=== PATIENT | male | born 1975 | race Caucasian/White ===

== ENCOUNTER 2019-02-18 07:15 | Inpatient (IN) | payer OTHER ==
[~2019-02-18] VITALS: Ht 177.8 cm; Wt 97.3 kg
--- NOTE | 2019-02-18 07:49 | NUR ---
PATIENT ARRIVES TO ER WITH HARM TO SELF IN A SUICIDE ATTEMPT THAT HAPPENED PRIOR TO ARRIVAL. hE HAS DEEP LACERATION SELF INFLICTED THAT WILL NEEED STITCHES TO RIGHT INNER WRIST SPANNING ENTIRE WIDTH OF INNER WRIST; BLEEDING CONTROLLED WITH DRESSING PLACED WHEN SHE CAME HOME FROM WORK AND NEW DRESSING I JUST PLACED. WAS WORKING [employer] WHEN SHE GOT TEXTS THAT HER WAS SENDING OUT DARK AND SI TEXTS TO ACQUAINTANCES. SHE TRIED TO CONTACT HIM BUT HE WAS NOT ANSWERING. SHE WAS RELEASED FROM WORK EARLY AT 4 AM AND WENT HOME WHERE WAS DRUNK, AND HAD CUTS TO BOTH WRISTS. THE LEFT SIDE IS SUPERFICIAL SCRAPES FROM KNIFE - MULTIPLE, THE RIGHT DEEP LARGE CUT. SHE BANDAGED AND BROUGHT HIM TO HOSPITAL. CLOTHING AND BELONGINGS REMOVED, GOWNED, RAILS UP. PATIENT AND SPOUSE DETAIL STORY THAT PATIENT HAS STRUGGLED WITH DEPRESSION FOR A FEW YEARS. THEY MOVED HERE IN LAST YEAR FROM [place]. HE APPARENTLY WAS ADDICTED TO TRAMADOL THAT HE WAS ORDERING "FROM [place]" AND TOOK SO MUCH THAT HE BEGAN HAVING SEIZURES. HE THEN SAW AN MD AND BEGAN TAKING KEPPRA FOR THE SEIZURES. HE WAS ALSO GIVEN AN ANTIDEPRESSANT THAT THEY ARE UNSURE OF NAME - THEY BELIEVE PAXIL, BUT UNSURE. STATES IT DIDN'T WORK AND HE RARELY TAKES IT. THEN HE BEGAN TO "TREAT HIS DEPRESSION" WITH ANOTHER [place] MEDICATION CALLED KRAYTUM THAT HE BEGAN ABUSING. SINCE LIVING IN [place] HIS DRINKING AND DEPRESSION WORSENING. HE STATES THAT HE IS HATES HUMANS, HE WANTS TO , AND HE INTENDS TO KILL HIMSELF. HE STATES HE HAS MULTIPLE PAST ATTEMPTS THAT INCLUDE JUMPING OFF CLIFFS AND OVERDOSING ON MEDICATIONS.
[2019-02-18] MEDS ORDERED: LORazepam 1MG TABLET PO ONE (08:00)
[2019-02-18] MEDS ORDERED: LIDOCAINE-MPF 1%, 5ML INFIL ONE (08:00)
[2019-02-18] MEDS ORDERED: LIDOCAINE-MPF 1%, 5ML ONE (08:22)
[2019-02-18 08:24] LABS: BASOPHILS # (AUTO) 0.02 x10^3/uL (0-0.1); BASOPHILS % (AUTO) 0 % (0-1); EOSINOPHILS # (AUTO) 0.04 x10^3/uL (0-0.4); EOSINOPHILS % (AUTO) 1 % (1-7); LYMPHOCYTES # (AUTO) 2.47 x10^3/uL (1-3.4); LYMPHOCYTES % (AUTO) 36 % (22-44); MD NO; MEAN CORPUSCULAR HEMOGLOBIN 32.4 pg (27.5-34.5); MEAN CORPUSCULAR HGB CONC 34.7 g/dL (33.2-36.2); MEAN CORPUSCULAR VOLUME 93.5 fL (81-97); MEAN PLATELET VOLUME 7.8 fL (7.4-10.4); MONOCYTES # (AUTO) 0.54 x10^3/uL (0.2-0.8); MONOCYTES % (AUTO) 8 % (2-9); NEUTROPHILS # (AUTO) 3.82 x10^3/uL (1.8-6.8); NEUTROPHILS % (AUTO) 55 % (42-75); PLATELET COUNT 212 x10^3/uL (130-400); RED CELL DISTRIBUTION WIDTH 13.7 % (9.4-14.8)
--- NOTE | 2019-02-18 08:28 | NUR ---
PREPPED PA FOR STICHING WOUND.
--- NOTE | 2019-02-18 08:31 | NUR ---
THERE IS NO BREATHYLZER AVAILABLE IN DEPARTMENT, HAVE LOOKED EVERYWHERE WILL GET BA CHANGED TO BLOOD.
[2019-02-18 08:35] LABS: ALANINE AMINOTRANSFERASE 31 U/L (12-78); ALBUMIN 3.7 g/dL (3.4-5.0); ANION GAP 8 mmol/L (5-15); CALCIUM 8.5 mg/dL (8.5-10.1); CHLORIDE 111 mmol/L (98-107); SALICYLATE LEVEL 1.9 mg/dL (2.8-20.0)
[2019-02-18 08:38] LABS: ACETAMINOPHEN < 2 mcg/mL (10-30); ALKALINE PHOSPHATASE 63 U/L (45-117); BILIRUBIN,TOTAL 0.2 mg/dL (0.2-1.0); TOTAL PROTEIN 7.3 g/dL (6.4-8.2)
[2019-02-18 08:44] LABS: AMPHETAMINE SCREEN, URINE Negative (Negative); BARBITURATE SCREEN, URINE Negative (Negative); BENZODIAZEPINE SCREEN, URINE Negative (Negative); CANNABINOID SCREEN, URINE Negative (Negative); COCAINE SCREEN, URINE Negative (Negative); METHADONE SCREEN, URINE Negative (Negative); OPIATE SCREEN, URINE Negative (Negative)
--- NOTE | 2019-02-18 09:15 | NUR ---
PATIENT A LEGAL HOLD ROOM SECURED W/ PSYCHIATRIC PRECAUTIONS 1:1 SITTER AT BEDSIDE UPDATED ON POC
[2019-02-18] MEDS ORDERED: BACITRACIN ZINC OINT 500U/GM, 0.9 GM ONE ×2 (09:29→13:16)
--- NOTE | 2019-02-18 09:30 | NUR ---
Right wrist laceration sutured by Provided. Dressed with bacitracin and sterile 4X4, wrapped with kerlix. cms intact post intervention
[2019-02-18] MEDS ORDERED: BACITRACIN ZINC OINT 500U/GM, 0.9 GM TP SCH (10:00)
--- NOTE | 2019-02-18 10:16 | NUR ---
TO BEDSIDE. TEARFUL IN R/T SITUATION. SHE EXPRESSED CONCERN PATIENT HAS BEEN QUITE DEPRESSED AND HAS BEEN HEAVILLY SELF MEDICATING LATELY WITH COPIOUS AMOUNTS OF TRMADOL & LIQUOR. PATIENT ADMITS TO TAKING UP TO 1000MG (ONE THOUSAND) OF TRAMADOL PER DAY OFTEN MIXED WITH ETOH. PATIENT REPORTS HX OF SEIZURE WHEN WITHDRAWING FROM TRAMADOL (WHICH HE GETS ONLINE FROM [facility] [place]). LAST TOOK TRAMADOL 2 DAYS AGO. 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
--- NOTE | 2019-02-18 10:30 | NUR ---
PATIENT A LEGAL HOLD ROOM SECURED W/ PSYCHIATRIC PRECAUTIONS 1:1 SITTER AT BEDSIDE DRESSING POST REPAIR REMAINS C/D/I PATIENT DELIVERED BREAKFASY AND PROVIDED WITH ADDITIONAL WATER PATIENT REPORTS NAUSEA/FINE TREMORS (TRAMADOL/ETOH WITHDRAWAL)-TO DISCUSS WITH PROVIDER
--- NOTE | 2019-02-18 11:40 | NUR ---
PATIENT A LEGAL HOLD ROOM SECURED W/ PSYCHIATRIC PRECAUTIONS 1:1 SITTER AT BEDSIDE
[2019-02-18] MEDS ORDERED: ONDANSETRON ODT 4 MG PO ONE (12:00)
[2019-02-18] MEDS ORDERED: LORazepam 1MG TABLET ONE (12:40)
[2019-02-18] MEDS ORDERED: ONDANSETRON ODT 4 MG ONE (12:40)
--- NOTE | 2019-02-18 12:45 | NUR ---
PATIENT A LEGAL HOLD ROOM SECURED W/ PSYCHIATRIC PRECAUTIONS 1:1 SITTER AT BEDSIDE MEDICATED PER EMAR MOVED ONTO HOSPITAL BED-RESTING SOUNDLY
[2019-02-18] MEDS ORDERED: TRAM100C2 PO (13:11)
[2019-02-18] MEDS ORDERED: SODIUM CHLORIDE 0.9% 1,000 ML IV ONE (13:28)
[2019-02-18] MEDS ORDERED: IBUPROFEN 200 MG TABLET PO ONE (13:30)
[2019-02-18] MEDS ORDERED: SODIUM CHLORIDE FLUSH 10ML SYR IVF PRN (13:30)
--- NOTE | 2019-02-18 13:41 | NUR ---
hospitalist at bedside
--- NOTE | 2019-02-18 13:59 | NUR ---
PATIENT A LEGAL HOLD ROOM SECURED W/ PSYCHIATRIC PRECAUTIONS 1:1 SITTER AT BEDSIDE
[2019-02-18] MEDS ORDERED: LORazepam 2 MG/ML, 1ML IV PRN ×5 (14:00)
[2019-02-18] MEDS ORDERED: ACETAMINOPHEN 325 MG TABLET PO PRN (14:00)
[2019-02-18] MEDS ORDERED: IBUPROFEN 600 MG TABLET PO PRN (14:00)
[2019-02-18] MEDS ORDERED: hydrALAzine 20 MG/ML, 1ML IVPush PRN (14:00)
[2019-02-18] MEDS ORDERED: LORazepam 1MG TABLET PO PRN ×3 (14:00)
[2019-02-18] MEDS ORDERED: BACLOFEN 10 MG TABLET PO PRN (14:00)
[2019-02-18] MEDS ORDERED: ONDANSETRON 2MG/ML, 2ML IVPush PRN (14:00)
[2019-02-18] MEDS ORDERED: KETOROLAC 30 MG/1 ML IV PRN (14:00)
[2019-02-18] MEDS ORDERED: KETOROLAC 30 MG/1 ML ONE (14:49)
[2019-02-18 16:00] VITALS: BP 138/74
[2019-02-18] MEDS: NS + 20MEQ KCL 1,000 ML IV SCH (16:53)
[2019-02-18] MEDS: NICOTINE 14MG/24 HR PATCH.TD24 TD SCH (17:00)
[2019-02-18] MEDS: ENOXAPARIN 40 MG/0.4 ML SQ SCH (17:00)
[2019-02-18 17:12] VITALS: BP 134/74
[2019-02-18 20:00] VITALS: BP 136/89
[2019-02-19] MEDS: NS + 20MEQ KCL 1,000 ML IV SCH ×2 (02:30→12:35)
[2019-02-19 03:04] VITALS: BP 115/74
[2019-02-19 04:06] LABS: BASOPHILS # (AUTO) 0.03 x10^3/uL (0-0.1); BASOPHILS % (AUTO) 0 % (0-1); EOSINOPHILS # (AUTO) 0.09 x10^3/uL (0-0.4); EOSINOPHILS % (AUTO) 1 % (1-7); LYMPHOCYTES # (AUTO) 2.39 x10^3/uL (1-3.4); LYMPHOCYTES % (AUTO) 34 % (22-44); MD NO; MEAN PLATELET VOLUME 8.4 fL (7.4-10.4); MONOCYTES # (AUTO) 0.75 x10^3/uL (0.2-0.8); MONOCYTES % (AUTO) 11 % (2-9); NEUTROPHILS # (AUTO) 3.88 x10^3/uL (1.8-6.8); NEUTROPHILS % (AUTO) 54 % (42-75); PLATELET COUNT 184 x10^3/uL (130-400); RED CELL DISTRIBUTION WIDTH 13.7 % (9.4-14.8)
[2019-02-19 04:19] LABS: ANION GAP 7 mmol/L (5-15); CALCIUM 8.1 mg/dL (8.5-10.1); CHLORIDE 111 mmol/L (98-107)
[2019-02-19 04:21] LABS: CREATININE 1.04 mg/dL (0.7-1.3)
[2019-02-19 06:40] VITALS: BP 115/73
[2019-02-19] MEDS: LORazepam 0.5MG TABLET PO PRN (12:35)
[2019-02-19 13:05] VITALS: BP 116/77
[2019-02-19] MEDS: NICOTINE 14MG/24 HR PATCH.TD24 TD SCH (13:26)
[2019-02-19] MEDS ORDERED: PROMETHAZINE 25 MG/ML, 1ML IM PRN (15:30)
[2019-02-19] MEDS: ENOXAPARIN 40 MG/0.4 ML SQ SCH (15:45)
[2019-02-19] MEDS: hydrOXyzine 50MG TABLET PO PRN (16:13)
[2019-02-19 19:00] VITALS: BP 124/76
[2019-02-20] MEDS: DIPHENHYDRAMINE 50 MG CAPSULE PO PRN ×2 (02:02→21:45)
[2019-02-20 02:10] VITALS: BP 124/81
[2019-02-20] MEDS: hydrOXyzine 50MG TABLET PO PRN (03:55)
[2019-02-20 07:39] VITALS: BP 147/100
[2019-02-20] MEDS: FOLIC ACID 1 MG TABLET PO SCH (07:56)
[2019-02-20] MEDS: MULTIVITAMIN 1 TABLET PO SCH (07:56)
[2019-02-20] MEDS: THIAMINE 100MG TABLET PO SCH (07:56)
[2019-02-20] MEDS ORDERED: THIAMINE 100 MG in DEXTROSE 5% 50 ML IVPB SCH (09:00)
[2019-02-20] MEDS: NICOTINE 14MG/24 HR PATCH.TD24 TD SCH (10:39)
[2019-02-20] MEDS: LORazepam 0.5MG TABLET PO PRN ×2 (12:51→22:51)
[2019-02-20 14:10] VITALS: BP 113/75
[2019-02-20] MEDS: ENOXAPARIN 40 MG/0.4 ML SQ SCH (17:00)
[2019-02-20] MEDS: LORazepam 1MG TABLET PO PRN (18:38)
[2019-02-20 19:42] VITALS: BP 133/66
[2019-02-21 00:19] VITALS: BP 124/80
[2019-02-21] MEDS: hydrOXyzine 50MG TABLET PO PRN (00:51)
[2019-02-21] MEDS: LORazepam 1MG TABLET PO PRN ×2 (02:40→06:33)
[2019-02-21] MEDS: GABAPENTIN 300 MG CAPSULE PO PRN (03:57)
[2019-02-21] MEDS: MULTIVITAMIN 1 TABLET PO SCH (10:26)
[2019-02-21] MEDS: FOLIC ACID 1 MG TABLET PO SCH (10:26)
[2019-02-21] MEDS: THIAMINE 100MG TABLET PO SCH (10:26)
[2019-02-21 14:01] VITALS: BP 126/75
[2019-02-21] MEDS: NICOTINE 14MG/24 HR PATCH.TD24 TD SCH (14:51)
[2019-02-21] MEDS: ENOXAPARIN 40 MG/0.4 ML SQ SCH (17:00)
[2019-02-21 20:24] VITALS: BP 130/79
[2019-02-22 02:00] VITALS: BP 130/79
[2019-02-22 06:42] VITALS: BP 127/85
[2019-02-22] MEDS: THIAMINE 100MG TABLET PO SCH (09:01)
[2019-02-22] MEDS: MULTIVITAMIN 1 TABLET PO SCH (09:01)
[2019-02-22] MEDS: FOLIC ACID 1 MG TABLET PO SCH (09:01)
[2019-02-22 13:25] VITALS: BP 111/78
[2019-02-22] MEDS: NICOTINE 14MG/24 HR PATCH.TD24 TD SCH (14:04)
[2019-02-22] MEDS: ENOXAPARIN 40 MG/0.4 ML SQ SCH (17:00)
[2019-02-22] MEDS: hydrOXyzine 50MG TABLET PO PRN (19:38)
[2019-02-22 19:43] VITALS: BP 116/79
[2019-02-23] MEDS: hydrOXyzine 50MG TABLET PO PRN (01:29)
[2019-02-23 01:55] VITALS: BP_SYST 115; BP_DIAS 8; BP_DIAS 80
[2019-02-23] MEDS: GABAPENTIN 300 MG CAPSULE PO PRN (05:54)
[2019-02-23] MEDS ORDERED: ONDANSETRON ODT 4 MG PO PRN (08:00)
[2019-02-23 08:15] VITALS: BP 124/76
[2019-02-23] MEDS: FOLIC ACID 1 MG TABLET PO SCH (09:29)
[2019-02-23] MEDS: MULTIVITAMIN 1 TABLET PO SCH (09:29)
[2019-02-23] MEDS: THIAMINE 100MG TABLET PO SCH (09:29)
[2019-02-23] MEDS ORDERED: ACET325T14 PO (11:17)
[2019-02-23] MEDS ORDERED: NICO-486 TD (11:17)
[2019-02-23] MEDS ORDERED: HYDR50TA13 PO (11:17)
[2019-02-23] MEDS ORDERED: CLON0.1T22 PO (11:17)
[2019-02-23] MEDS ORDERED: GABA300C10 PO (11:17)
[2019-02-23] MEDS ORDERED: IBUP-1222 PO (11:17)
[2019-02-23] MEDS: NICOTINE 14MG/24 HR PATCH.TD24 TD SCH (14:10)
== END 2019-02-23 18:00 | DRG 605 ==
LOC: ED 13:27 → 4NOR 13:28 → ED 14:14 → 4NOR 15:20 → ED 15:20 → 4NOR 15:56 → ED 15:56 → 4NOR 02-23 07:23
PROVIDERS: ADMIT Internal Medicine; ATTEND Internal Medicine
PROC: 0HQEXZZ Repair Left Lower Arm Skin, External Approach (ICD-10-PCS; principal; 2019-02-18)
PROC: 0HQDXZZ Repair Right Lower Arm Skin, External Approach (ICD-10-PCS; 2019-02-18)
DX: S61.511A Laceration without foreign body of right wrist, initial encounter (principal); F33.2 Major depressive disorder, recurrent severe without psychotic features; F11.23 Opioid dependence with withdrawal; R44.0 Auditory hallucinations; G47.00 Insomnia, unspecified; F41.9 Anxiety disorder, unspecified; F17.210 Nicotine dependence, cigarettes, uncomplicated; X78.8XXA Intentional self-harm by other sharp object, initial encounter; F10.10 Alcohol abuse, uncomplicated; Y90.9 Presence of alcohol in blood, level not specified; S61.512A Laceration without foreign body of left wrist, initial encounter; G89.29 Other chronic pain; M54.2 Cervicalgia; Z83.3 Family history of diabetes mellitus; Y93.89 Activity, other specified; Y92.89 Other specified places as the place of occurrence of the external cause; Y99.8 Other external cause status
CPT/HCPCS: 36415; 80048; 80053; 80307; 84443; 85025; 93005; 99285; G0378; J1650; J1885; J3480; Q0162

== ENCOUNTER 2019-08-05 15:50 | Emergency (ER) | payer OTHER ==
[~2019-08-05] VITALS: Ht 177.8 cm; Wt 102.8 kg
[~2019-08-05 15:50] MED LIST: ACET325T14 PO; CLON0.1T22 PO; GABA300C10 PO; HYDR50TA13 PO; IBUP-1222 PO; NICO-486 TD; TRAM100C2 PO
--- NOTE | 2019-08-05 16:28 | NUR ---
pt to ed after pcp appt today. pt states hr was 145 in the office and wouldn't go down even during rest. pt states intermittent shooting cp that is common for him described and shooting from left chest to left arm and is commonly associated with anxiety. pt states he flies often for work, but denies sob. pt connected to all monitors. tachy, htn, all other vss on ra. pt states he recently ran out of antidepressant and anxiety medication (unkown what meds). 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 awaiting edmd assessment.
[2019-08-05 17:08] LABS: BASOPHILS # (AUTO) 0.03 x10^3/uL (0-0.1); BASOPHILS % (AUTO) 0 % (0-1); EOSINOPHILS # (AUTO) 0.04 x10^3/uL (0-0.4); EOSINOPHILS % (AUTO) 0 % (1-7); LYMPHOCYTES # (AUTO) 3.03 x10^3/uL (1-3.4); LYMPHOCYTES % (AUTO) 26 % (22-44); MD NO; MEAN CORPUSCULAR HEMOGLOBIN 31.8 pg (27.5-34.5); MEAN CORPUSCULAR HGB CONC 33.6 g/dL (33.2-36.2); MEAN CORPUSCULAR VOLUME 94.7 fL (81-97); MEAN PLATELET VOLUME 7.9 fL (7.4-10.4); MONOCYTES # (AUTO) 1.03 x10^3/uL (0.2-0.8); MONOCYTES % (AUTO) 9 % (2-9); NEUTROPHILS # (AUTO) 7.63 x10^3/uL (1.8-6.8); NEUTROPHILS % (AUTO) 65 % (42-75); PLATELET COUNT 243 x10^3/uL (130-400); RED BLOOD COUNT 5.28 x10^6/uL (4.38-5.82); RED CELL DISTRIBUTION WIDTH 13.4 % (9.4-14.8)
--- NOTE | 2019-08-05 17:12 | NUR ---
PT RESTING IN ROOM WITH FAMILY AT BS. SUNIL HURLEY. PT UP SELF TO RR TO PROVIDE URINE. UTOX COLLECTED AND SENT TO LAB. AWAITING RESUTLS. NO NEEDS EXPRESSED. CALL LIGHT WITHIN REACH.
[2019-08-05 17:19] LABS: ALANINE AMINOTRANSFERASE 33 U/L (12-78); ANION GAP 8 mmol/L (5-15); CALCIUM 8.7 mg/dL (8.5-10.1); CHLORIDE 104 mmol/L (98-107)
[2019-08-05 17:24] LABS: ALKALINE PHOSPHATASE 74 U/L (45-117); BILIRUBIN,TOTAL 0.5 mg/dL (0.2-1.0); CREATININE 1.36 mg/dL (0.7-1.3); T4 (THYROXINE) 6.9 mcg/dL (4.5-12.1); TOTAL PROTEIN 7.6 g/dL (6.4-8.2); TROPONIN I < 0.015 ng/mL (0.000-0.045)
[2019-08-05 17:30] LABS: AMPHETAMINE SCREEN, URINE Negative (Negative); BARBITURATE SCREEN, URINE Negative (Negative); BENZODIAZEPINE SCREEN, URINE Negative (Negative); CANNABINOID SCREEN, URINE Negative (Negative); COCAINE SCREEN, URINE Negative (Negative); METHADONE SCREEN, URINE Negative (Negative); OPIATE SCREEN, URINE Negative (Negative)
--- NOTE | 2019-08-05 18:08 | NUR ---
TASK RN: RECEIVED BEDSIDE REPORT FROM LAURA CARLOS.
[2019-08-05] MEDS ORDERED: LORazepam 1MG TABLET ONE (18:25)
--- NOTE | 2019-08-05 18:28 | NUR ---
task rn: medication administered per order. nadn. bedside.
[2019-08-05] MEDS ORDERED: LORazepam 1MG TABLET PO ONE (18:30)
--- NOTE | 2019-08-05 18:42 | NUR ---
TASK RN: BEDSIDE REPORT TO LAURA CARLOS.
[2019-08-05 19:06] VITALS: BP 139/106
--- NOTE | 2019-08-05 19:06 | NUR ---
PT RESTING IN ROOM WITH FAMILY AT BS. HTN, VSS. NO NEEDS EXPRESSED. CHART UP FOR RECHECK.
== END 2019-08-05 19:28 | disposition home or self-care (01) ==
LOC: ED 19:05
DX: F41.1 Generalized anxiety disorder (principal); R00.2 Palpitations; I10 Essential (primary) hypertension; F32.9 Major depressive disorder, single episode, unspecified; Z72.9 Problem related to lifestyle, unspecified
CPT/HCPCS: 36415; 71046; 80053; 80307; 84436; 84443; 84484; 85025; 85379; 93005; 99284